=== PATIENT | female | born 1955 | race Caucasian/White ===

== ENCOUNTER 2017-11-20 15:13 | Emergency (ER) | payer MEDICAID ==
[~2017-11-20] VITALS: Ht 154.9 cm; Wt 62.0 kg
[~2017-11-20 15:13] MED LIST: DOXY100C PO; LEVO100T5 PO; LOTR5CAP3 PO; PRED20 PO; SIMV20TA PO; SYMB160A INH; XANA1TAB2 PO
[2017-11-20 15:19] VITALS: BP 136/78; PULSE 91; RESP 16; TEMP 98; O2SAT 99
[2017-11-20] MEDS ORDERED: METF1000 PO (16:10)
[2017-11-20] MEDS ORDERED: LIPI10TA PO (16:10)
[2017-11-20] MEDS ORDERED: ALBU0.63 NEB (16:12)
[2017-11-20] MEDS ORDERED: CEPH-460 PO (16:20)
--- NOTE | 2017-11-20 16:21 | PD ---
HPI Chief Complaint: Pain: Acute or Chronic Time Seen by Provider: 16:13 Travel History International Travel<30 days: No Contact w/Intl Traveler<30days: No Traveled to known affect area: No History of Present Illness HPI 62-year-old female presents to the emergency department requesting removal of her ingrown toenails from bilateral big toes today. She says she is diabetic and is concerned that she is going to lose her toes. Denies erythema, edema, drainage of the toes or ingrown toenail sites. She has tried cutting and removing the toenails herself. Denies fever, vomiting. Has been taking ibuprofen for pain. Rates pain 8/10. Pain is worse with pressure to the area and walking. Better at rest. No known allergies. Has no other medical complaints. Has an established primary care provider. Cannot find a turner splitter machine operator in the area to take her insurance. No other modifying factors or associated signs and symptoms. PFSH Past Medical History Hx Anticoagulant Therapy: No Anxiety: Yes Cancer: Yes (UTERINE) Cardiovascular Problems: Yes (HTN, CHOL) High Cholesterol: Yes COPD: Yes Diabetes: Yes Patient Takes Glucophage: No Diminished Hearing: No Hypertension: Yes Respiratory: Yes (COPD; ASTHMA) Thyroid Disease: Yes Triglycerides - High: Yes ?: Not Past Surgical History Eye Surgery: Yes (RIGHT CATARACT) Hysterectomy: Yes (PARTIAL) Social History Alcohol Use: No Tobacco Use: No (E [employer], FORMER CIGARETTE SMOKER.) Substance Use: No Allergies-Medications (Allergen,Severity, Reaction): Coded Allergies: No Known Allergies (Verified Adverse Reaction, Unknown, 11/20/17) Reported Meds & Prescriptions Reported Meds & Active Scripts Active Keflex (Cephalexin) 500 Mg Cap 500 Mg PO Q8H 7 Days Reported Albuterol Neb (Albuterol Sulfate) 0.63 Mg/3 Ml Neb Unknown Dose NEB ONCE PRN Metformin (Metformin HCl) 1,000 Mg Tab Unknown Dose PO DAILY Lipitor (Atorvastatin Calcium) 10 Mg Tab Unknown Dose PO HS Levothyroxine (Levothyroxine Sodium) 100 Mcg Tab 100 Mcg PO DAILY Symbicort Inh (Budesonide/Formoterol Fumarate) 160-4.5 Mcg/Act Aero 1 Puff INH Q12HR Lotrel (Amlodipine-Benazepril) 5-20 Mg Cap 1 Cap PO DAILY Xanax (Alprazolam) 1 Mg Tab 1 Mg PO Q8H PRN Review of Systems Except as stated in HPI: all other systems reviewed are Neg Physical Exam Narrative GENERAL: Well-nourished, well-developed feet patient, in no acute distress SKIN: Warm and dry. Bilateral great toes without erythema, edema; no drainage noted to the lateral or medial aspect of bilateral toenails; all the toenails of both feet are cut extremely short. Bilateral lower extremity is or supple and nontender to palpation. Sensory intact without erythema or edema. HEAD: Atraumatic. Normocephalic. EYES: Pupils equal and round. No scleral icterus. No injection or drainage. ENT: Mucosa pink and moist. Airway patent. NECK: Trachea midline. CARDIOVASCULAR: Regular rate. RESPIRATORY: No accessory muscle use. GASTROINTESTINAL: Rounded. MUSCULOSKELETAL: No obvious deformities. No clubbing. No cyanosis. No edema. NEUROLOGICAL: Awake and alert. Oriented 3. No obvious cranial nerve deficits. Motor grossly within normal limits. Normal speech. PSYCHIATRIC: Appropriate mood and affect; insight and judgment normal. Data Data Last Documented VS Vital Signs Date Time Temp Pulse Resp B/P (MAP) Pulse Ox O2 Delivery O2 Flow Rate FiO2 11/20/17 15:19 98.0 91 16 136/78 (97) 99 Orders Orders Ed Discharge Order (11/20/17 16:22) [facility] Medical Decision Making Medical Screen Exam Complete: Yes Emergency Medical Condition: Yes Medical Record Reviewed: Yes Differential Diagnosis Ingrown toenail, ingrown toenail infection, medical clearance Narrative Course 62-year-old female with bilateral ingrown toenails and is requesting to be removed. She is diabetic. She has cut her toenails extremely short to all toes on both feet. There are no signs of infection. Secondary to how sure she has cut her toenails and she has tried digging at the ingrown toenails and I will prescribe antibiotics to avoid infection. Keflex prescribed for home. Instructed patient to follow up with turner splitter machine operator. Instructed patient to follow up with primary care provider. Patient verbalizes understanding and agreement with treatment plan. Patient is medically cleared and stable for discharge. Discussed reasons to return to the emergency department. Patient agrees with treatment plan. The patients vital signs are stable and the patient is stable for outpatient follow-up and treatment. Patient discharged home, stable and in no acute distress. Diagnosis Primary Impression: Ingrown toenail Referrals: Mig [facility] Welder Primary Care Physician Patient Instructions: Foot Care for People with Diabetes (ED), General Instructions, Ingrown Nail (ED) Additional Instructions: Refer to your discharge instructions for foot care for diabetics Stop cutting your toenails so short and when you do cut them cut them straight across Antibiotics as prescribed to avoid infection Check your feet daily for signs of infection and open wounds Where close toed shoes Follow-up with podiatry Med/Other Pt SpecificInfo: Prescription(s) given Scripts Cephalexin (Keflex) 500 Mg Cap 500 MG PO Q8H for Infection for 7 Days, #21 CAP 0 Refills Prov: Hali Goldman 11/20/17 Disposition: 01 DISCHARGE HOME Condition: Stable Hali Goldman Nov 20, 2017 16:21
== END 2017-11-20 17:19 | disposition home or self-care (01) ==
LOC: PHEFT 15:13
DX: L60.0 Ingrowing nail (principal); E11.9 Type 2 diabetes mellitus without complications; E78.00 Pure hypercholesterolemia, unspecified; I10 Essential (primary) hypertension; J44.9 Chronic obstructive pulmonary disease, unspecified; E07.9 Disorder of thyroid, unspecified; Z79.84 Long term (current) use of oral hypoglycemic drugs; Z85.42 Personal history of malignant neoplasm of other parts of uterus; Z87.891 Personal history of nicotine dependence
CPT/HCPCS: 99283

== ENCOUNTER 2018-05-07 16:14 | Emergency (ER) | payer MEDICAID ==
[~2018-05-07] VITALS: Ht 157.5 cm; Wt 65.9 kg
[~2018-05-07 16:14] MED LIST changes: +ALBU0.63 NEB; +CEPH-460 PO; -DOXY100C PO; +LIPI10TA PO; +METF1000 PO; -PRED20 PO; -SIMV20TA PO
[2018-05-07 16:17] VITALS: BP 164/94; PULSE 107; RESP 20; TEMP 98.6; O2SAT 99
[2018-05-07 16:30] VITALS: BP 117/70; PULSE 95; RESP 16; O2SAT 98
--- NOTE | 2018-05-07 16:46 | PD ---
HPI . Cold Chief Complaint: Cold / Flu Symptoms Time Seen by Provider: 16:29 Travel History International Travel<30 days: No Contact w/Intl Traveler<30days: No Traveled to known affect area: No History of Present Illness HPI Patient presents with a chief complaint of cold symptoms. Onset today. Symptoms include fever, chills, cough and sore throat. She rates her pain at 10 /10. She states that she took a leftover Cipro prior to arrival. She has not taken anything for fever or cold symptoms. PFSH Past Medical History Hx Anticoagulant Therapy: No Anxiety: Yes Cancer: Yes (UTERINE) Cardiovascular Problems: Yes (HTN, CHOL) High Cholesterol: Yes COPD: Yes Diabetes: Yes Patient Takes Glucophage: Yes Diminished Hearing: No Hypertension: Yes Respiratory: Yes (COPD; ASTHMA) Thyroid Disease: Yes Triglycerides - High: Yes Past Surgical History Eye Surgery: Yes (RIGHT CATARACT) Hysterectomy: Yes (PARTIAL) Social History Alcohol Use: No Tobacco Use: Yes (VAPE) Substance Use: No Allergies-Medications (Allergen,Severity, Reaction): Coded Allergies: No Known Allergies (Verified Adverse Reaction, Unknown, 05/07/18) Reported Meds & Prescriptions Reported Meds & Active Scripts Active Keflex (Cephalexin) 500 Mg Cap 500 Mg PO Q8H 7 Days Reported Albuterol Neb (Albuterol Sulfate) 0.63 Mg/3 Ml Neb Unknown Dose NEB ONCE PRN Metformin (Metformin HCl) 1,000 Mg Tab Unknown Dose PO DAILY Lipitor (Atorvastatin Calcium) 10 Mg Tab Unknown Dose PO HS Levothyroxine (Levothyroxine Sodium) 100 Mcg Tab 100 Mcg PO DAILY Symbicort Inh (Budesonide/Formoterol Fumarate) 160-4.5 Mcg/Act Aero 1 Puff INH Q12HR Lotrel (Amlodipine-Benazepril) 5-20 Mg Cap 1 Cap PO DAILY Xanax (Alprazolam) 1 Mg Tab 1 Mg PO Q8H PRN Review of Systems Except as stated in HPI: all other systems reviewed are Neg General / Constitutional: Positive: Fever, Chills HENT: Positive: Sore Throat Respiratory: Positive: Cough Physical Exam Narrative GENERAL: Awake and alert and in no acute distress. SKIN: Warm and dry. Normal color and turgor. HEAD: Normocephalic/atraumatic. EYES: Pupils are equal. Extraocular movements are intact. ENT: Oropharynx is pink and moist. No erythema. NECK: Normal range of motion. Supple. No cervical lymphadenopathy. CARDIOVASCULAR: Regular rate and rhythm. RESPIRATORY: Nonlabored respirations. Normal sats. Lungs are clear with full air movement throughout. MUSCULOSKELETAL: Atraumatic. Normal muscle tone. NEUROLOGICAL: A and O 3. Nonfocal. PSYCHIATRIC: Appropriate mood and affect. Data Data Last Documented VS Vital Signs Date Time Temp Pulse Resp B/P (MAP) Pulse Ox O2 Delivery O2 Flow Rate FiO2 05/07/18 16:30 95 16 117/70 (86) 98 05/07/18 16:17 98.6 Orders Orders Ed Discharge Order (05/07/18 16:36) MDM Medical Decision Making Medical Screen Exam Complete: Yes Emergency Medical Condition: Yes Differential Diagnosis Differential diagnosis includes but is not limited to influenza, upper respiratory infection, bronchitis, pneumonia Narrative Course This patient presents with acute cold symptoms. It started today. She has a normal physical exam. She will be discharged home with instructions to treat her cold symptomatically. Diagnosis Primary Impression: Upper respiratory infection Qualified Codes: J06.9 - Acute upper respiratory infection, unspecified Referrals: Yin Wilder MD (PCP) 3 days Patient Instructions: General Instructions, Cold Symptoms (ED) Departure Forms: Tests/Procedures Additional Instructions: I recommend the use of a Neti Pot. You may use a nasal spray such as Afrin for up to 3 days as needed for nasal congestion. You may take an izbf-eya-jfqibli antihistamine such as Zyrtec, Magi or Claritin as needed for runny secretions. You may take pseudoephedrine as needed for congestion. You will need to sign for this at the pharmacy. You may take plain Mucinex, 1200 mg twice a day as needed for thick secretions. You may take a cough syrup such as Delsym as needed for cough. Motrin as needed for fever and body aches. Throat lozenges/sprays as needed for sore throat. Warm salt water gargles for sore throat. Hot tea with lemon and honey also helps soothe a sore throat. Disposition: 01 DISCHARGE HOME Condition: Stable Shae Martin MD May 07, 2018 16:46
== END 2018-05-07 16:54 | disposition home or self-care (01) ==
LOC: PHED 16:14
DX: J06.9 Acute upper respiratory infection, unspecified (principal); E11.9 Type 2 diabetes mellitus without complications; E78.00 Pure hypercholesterolemia, unspecified; F41.9 Anxiety disorder, unspecified; I10 Essential (primary) hypertension; J44.9 Chronic obstructive pulmonary disease, unspecified; Z85.42 Personal history of malignant neoplasm of other parts of uterus; F17.290 Nicotine dependence, other tobacco product, uncomplicated
CPT/HCPCS: 99282

== ENCOUNTER 2018-05-09 16:35 | Emergency (ER) | payer MEDICAID ==
[~2018-05-09] VITALS: Ht 154.9 cm; Wt 63.0 kg
[2018-05-09 16:37] VITALS: BP 108/58; PULSE 94; RESP 16; TEMP 97.9; O2SAT 97
[2018-05-09] MEDS ORDERED: GLIP5TAB8 PO (16:54)
--- NOTE | 2018-05-09 17:05 | PD ---
HPI Chief Complaint: Syncope/Near-Syncope Time Seen by Provider: 16:50 Travel History International Travel<30 days: No Contact w/Intl Traveler<30days: No Traveled to known affect area: No History of Present Illness HPI This patient says that she blacked out this morning. She was dizzy and lightheaded that occurred while she had an episode of emesis. She complains of bronchitis-like symptoms. She was seen here 2 days ago for the same. She wanted to get antibiotics. She does not have any documented fever. She has runny nose and congestion and cough. No chest pain. No alleviating factors. Symptom severity is moderate. Duration 4 days. No exacerbating factors PFSH Past Medical History Hx Anticoagulant Therapy: No Anxiety: Yes Cancer: Yes (UTERINE) Cardiovascular Problems: Yes (HTN, CHOL) High Cholesterol: Yes COPD: Yes Diabetes: Yes Patient Takes Glucophage: No Diminished Hearing: No Hypertension: Yes Respiratory: Yes (COPD; ASTHMA) Thyroid Disease: Yes Triglycerides - High: Yes Tetanus Vaccination: < 5 Years Influenza Vaccination: Yes ?: Not Past Surgical History Eye Surgery: Yes (RIGHT CATARACT) Hysterectomy: Yes (PARTIAL) Social History Alcohol Use: No Tobacco Use: Yes (VAPE) Substance Use: No Allergies-Medications (Allergen,Severity, Reaction): Coded Allergies: No Known Allergies (Verified Adverse Reaction, Unknown, 05/09/18) Reported Meds & Prescriptions Reported Meds & Active Scripts Active Reported Glipizide 5 Mg Tab 2.5 Mg PO BIDAC Take 30 minutes before a meal Albuterol Neb (Albuterol Sulfate) 0.63 Mg/3 Ml Neb Unknown Dose NEB ONCE PRN Metformin (Metformin HCl) 1,000 Mg Tab Unknown Dose PO DAILY Lipitor (Atorvastatin Calcium) 10 Mg Tab Unknown Dose PO HS Levothyroxine (Levothyroxine Sodium) 100 Mcg Tab 100 Mcg PO DAILY Symbicort Inh (Budesonide/Formoterol Fumarate) 160-4.5 Mcg/Act Aero 1 Puff INH Q12HR Lotrel (Amlodipine-Benazepril) 5-20 Mg Cap 1 Cap PO DAILY Xanax (Alprazolam) 1 Mg Tab 1 Mg PO Q8H PRN Review of Systems General / Constitutional: No: Fever Eyes: No: Visual changes HENT: Positive: Lightheadedness, No: Headaches Cardiovascular: Positive: Syncope, No: Chest Pain or Discomfort Respiratory: Positive: Cough, No: Shortness of Breath Gastrointestinal: Positive: Nausea, Vomiting, No: Abdominal Pain Genitourinary: No: Dysuria Musculoskeletal: No: Pain Skin: No Rash Neurologic: Positive: Syncope, No: Weakness Psychiatric: No: Depression Endocrine: No: Polydipsia Hematologic/Lymphatic: No: Easy Bruising Physical Exam Narrative GENERAL: Well-nourished, well-developed patient in no apparent distress. SKIN: Focused skin assessment reveals no rash and nodules. Skin is Warm and dry. HEAD: Atraumatic. Normocephalic. EYES: Pupils equal and round. No scleral icterus. No injection or drainage. ENT: No nasal bleeding or discharge. Mucous membranes pink and moist. NECK: Trachea midline. No JVD. CARDIOVASCULAR: Regular rate and rhythm. No murmur appreciated. RESPIRATORY: No accessory muscle use. Clear to auscultation. Breath sounds equal bilaterally. GASTROINTESTINAL: Abdomen soft, non-tender, nondistended. Hepatic and splenic margins not palpable. MUSCULOSKELETAL: No obvious deformities. No clubbing. No cyanosis. No edema. NEUROLOGICAL: Awake and alert. No obvious cranial nerve deficits. Motor grossly within normal limits. Normal speech. PSYCHIATRIC: Appropriate mood and affect; insight and judgment normal. Data Data Last Documented VS Vital Signs Date Time Temp Pulse Resp B/P (MAP) Pulse Ox O2 Delivery O2 Flow Rate FiO2 05/09/18 16:50 16 97 Room Air 05/09/18 16:37 97.9 94 108/58 (75) Orders Orders Electrocardiogram (05/09/18 ) Sand Tester / Telemetry [id number].[email or web address] (05/09/18 16:58) Complete Blood Count With Diff (05/09/18 16:58) Basic Metabolic Panel (Bmp) (05/09/18 16:58) Labs Laboratory Tests Test 05/09/18 17:20 White Blood Count 9.4 TH/MM3 Red Blood Count 4.51 MIL/MM3 Hemoglobin 13.5 GM/DL Hematocrit 40.0 % Mean Corpuscular Volume 88.7 FL Mean Corpuscular Hemoglobin 29.9 PG Mean Corpuscular Hemoglobin Concent 33.7 % Red Cell Distribution Width 12.7 % Platelet Count 300 TH/MM3 Mean Platelet Volume 9.3 FL Neutrophils (%) (Auto) 67.0 % Lymphocytes (%) (Auto) 22.4 % Monocytes (%) (Auto) 8.1 % Eosinophils (%) (Auto) 1.9 % Basophils (%) (Auto) 0.6 % Neutrophils # (Auto) 6.2 TH/MM3 Lymphocytes # (Auto) 2.1 TH/MM3 Monocytes # (Auto) 0.8 TH/MM3 Eosinophils # (Auto) 0.2 TH/MM3 Basophils # (Auto) 0.1 TH/MM3 CBC Comment DIFF FINAL Differential Comment Blood Urea Nitrogen 29 MG/DL Creatinine 1.90 MG/DL Random Glucose 209 MG/DL Calcium Level 8.9 MG/DL Sodium Level 136 MEQ/L Potassium Level 4.2 MEQ/L Chloride Level 104 MEQ/L Carbon Dioxide Level 24.5 MEQ/L Anion Gap 8 MEQ/L Estimat Glomerular Filtration Rate 27 ML/MIN MDM Medical Decision Making Medical Screen Exam Complete: Yes Emergency Medical Condition: Yes Medical Record Reviewed: Yes Differential Diagnosis Bronchitis, URI, cardiac arrhythmia, vasovagal episode Narrative Course I have reviewed the patient's electronic medical record. I reviewed her visit from 2 days ago IV placed and labs sent Extended cardiac monitoring reveals sinus rhythm without ectopy I reviewed her EKG which is normal Had a lengthy discussion with patient about antibiotic therapy and viral infections. Both the previous physician 2 days ago and myself believe this to be a a viral infection. Supportive care is discussed. I explained that I do not feel antibiotics are indicated. says he is aware of the problems with overuse of antibiotics but then still badgers me to prescribe some. CBC is normal Metabolic profile reveals some renal insufficiency which I discussed with the patient. They have seen outpatient territory sales manager for renal insufficiency. I advised him to call them to report new lab studies have been done and get follow -up Diagnosis Primary Impression: Syncope Qualified Codes: R55 - Syncope and collapse Additional Impression: Acute viral bronchitis Additional Instructions: The patient was advised to follow up with their physician and return if they worsen. Med/Other Pt SpecificInfo: Other Disposition: 01 DISCHARGE HOME Condition: Stable Arun Carrion MD May 09, 2018 17:05
[2018-05-09 17:30] LABS: AUTOMATED NEUTROPHIL # 6.2 TH/MM3 (1.8-7.7); BASOPHIL # 0.1 TH/MM3 (0-0.2); BASOPHIL % 0.6 % (0.0-2.0); EOSINOPHIL # 0.2 TH/MM3 (0-0.4); EOSINOPHIL % 1.9 % (0.0-4.0); HEMOGLOBIN 13.5 GM/DL (11.6-15.3); LYMPH % 22.4 % (9.0-44.0); LYMPHOCYTE # 2.1 TH/MM3 (1.0-4.8); MEAN CELL VOLUME 88.7 FL (80.0-100.0); MEAN CORPUSCULAR HEMOGLOBIN 29.9 PG (27.0-34.0); MEAN CORPUSCULAR HGB CONC 33.7 % (32.0-36.0); MEAN PLATELET VOLUME 9.3 FL (7.0-11.0); MONO % 8.1 % (0.0-8.0); MONOCYTE # 0.8 TH/MM3 (0-0.9); PLATELET COUNT 300 TH/MM3 (150-450); RED BLOOD COUNT 4.51 MIL/MM3 (4.00-5.30); RED CELL DISTRIBUTION WIDTH 12.7 % (11.6-17.2); WHITE BLOOD COUNT 9.4 TH/MM3 (4.0-11.0)
[2018-05-09 17:42] LABS: BICARBONATE 24.5 MEQ/L (21.0-32.0); CALCIUM 8.9 MG/DL (8.5-10.1)
[2018-05-09 17:46] LABS: CREATININE 1.9 MG/DL (0.50-1.00)
--- NOTE | 2018-05-10 15:04 | EKG ---
Date Performed: 05/09/2018 Time Performed: 17:06:07 PTAGE: 62 years EKG: Sinus rhythm LOW QRS VOLTAGE IN PRECORDIAL LEADS POSSIBLE RIGHT VENTRICULAR CONDUCTION DELAY BORDERLINE ECG PREVIOUS TRACING : 03/05/2016 17.30 Since the previous tracing, no significant change noted DOCTOR: Ck Negro Interpretating Date/Time 05/10/2018 15:03:25
== END 2018-05-09 18:10 | disposition home or self-care (01) ==
LOC: PHED 16:35
DX: R55 Syncope and collapse (principal); J20.8 Acute bronchitis due to other specified organisms; J44.0 Chronic obstructive pulmonary disease with (acute) lower respiratory infection; R94.31 Abnormal electrocardiogram [ECG] [EKG]; N28.9 Disorder of kidney and ureter, unspecified; F41.9 Anxiety disorder, unspecified; Z85.42 Personal history of malignant neoplasm of other parts of uterus; E78.00 Pure hypercholesterolemia, unspecified; E11.9 Type 2 diabetes mellitus without complications; I10 Essential (primary) hypertension; E07.9 Disorder of thyroid, unspecified; Z72.0 Tobacco use
CPT/HCPCS: 80048; 85025; 93005; 99284